=== PATIENT | male | born 1975 | race Caucasian/White ===

== ENCOUNTER 2019-07-13 11:32 | Emergency (ER) | payer OTHER, SELFPAY ==
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
[2019-07-13 11:25] VITALS: BP 128/50; PULSE 120; RESP 20; TEMP 36.3; O2SAT 100
--- NOTE | 2019-07-13 11:34 | DI.CT.S_ITS ---
PROCEDURE: CT HEAD/BRAIN WO CON INDICATIONS: Trauma TECHNIQUE: Noncontrast 4.5 mm thick angled axial sections acquired from the foramen magnum to the vertex, with coronal and sagittal reformats. For radiation dose reduction, the following was used: automated exposure control, adjustment of mA and/or kV according to patient size. COMPARISON: None. FINDINGS: Image quality: Excellent. CSF spaces: Basal cisterns are patent. No extra-axial fluid collections. Ventricles are normal in size and shape. Brain: No midline shift. No intracranial masses or hemorrhage. Edwards-white matter interface is normal. Skull and face: Calvarium and visualized facial bones are intact, without suspicious lesions. Sinuses: Visualized sinuses and mastoids are clear. IMPRESSION: Negative head CT. No acute intracranial hemorrhage. Dictated by: Mook Landon M.D. on 07/13/2019 at 11:10 Approved by: Mook Landon M.D. on 07/13/2019 at 11:11
--- NOTE | 2019-07-13 11:34 | DI.CT.S_ITS ---
PROCEDURE: CT CHEST ABD PEL W CON INDICATIONS: Trauma TECHNIQUE: After the administration of intravenous contrast, 5 mm thick sections acquired from the lung apices to the symphysis. 2.5 mm thick coronal and sagittal reformats were acquired. Additional 7 mm thick coronal maximum intensity projection (MIP) reformats acquired through the lungs. Optional 10-minute delayed imaging may be performed from the kidneys to the bladder. For radiation dose reduction, the following was used: automated exposure control, adjustment of mA and/or kV according to patient size. COMPARISON: None. FINDINGS: Image quality: Diagnostic. CHEST: Lungs: No pulmonary contusions or lacerations. No acute airspace opacities. No pneumothorax or hemothorax. Central and peripheral airways appear patent and normal in caliber. An endotracheal tube is appropriately positioned within the trachea. There is mild bibasilar atelectasis. Minimal debris is seen within the right and left main pulmonary bronchi. Mediastinum: No mediastinal hematomas. Heart size is normal. No pericardial effusion. Thoracic aorta and pulmonary arteries demonstrate normal size and enhancement. No mediastinal or hilar adenopathy. Esophagus is normal in caliber. No hiatal hernia. Chest wall and bones: No displaced rib fractures. The vertebral body heights are well-maintained. No compression deformities are evident. Mild degenerative changes are present. No subcutaneous emphysema. No axillary or supraclavicular adenopathy. Thyroid gland is not adequately evaluated. ABDOMEN: Solid organs: Liver is normal in size and enhancement, without lacerations. Gallbladder is grossly unremarkable. Biliary system is non-dilated. Pancreas enhances normally, without transection. Spleen is normal in size and enhancement, without lacerations. No adrenal hematomas. Both kidneys enhance normally, without hydronephrosis or lacerations. Peritoneum and bowel: No free fluid or air. Unenhanced bowel loops demonstrate normal wall thickness and caliber. Nodes and vessels: No retroperitoneal or mesenteric adenopathy. Aorta and inferior vena cava are normal in size and enhancement. Bones: No acute fractures or suspicious osseous lesions are identified. There are [id number] degenerative changes of the lumbar spine. PELVIS: Genitourinary: There is a Garcia catheter within the urinary bladder. Miscellaneous: No inguinal hernias or adenopathy. Bones: Pelvic ring and hip joints appear intact. No vertebral compression fractures. Acute pelvic fractures are identified. Os acetabuli is present on the left. IMPRESSION: 1. No acute trauma to the chest is evident. 2. No evidence of solid organ injury (laceration or contusion of the abdomen). 3. Minimal bibasilar atelectasis. 4. No displaced fractures of the chest, abdomen, or pelvis. Dictated by: Mook Landon M.D. on 07/13/2019 at 11:14 Approved by: Mook Landon M.D. on 07/13/2019 at 11:18
--- NOTE | 2019-07-13 11:34 | DI.CT.S_ITS ---
PROCEDURE: CT CERVICAL SPINE WO CON INDICATIONS: Trauma TECHNIQUE: Noncontrast 3 mm thick sections acquired from the skull base to the T4 level. Sagittal and coronal reformats were then constructed. For radiation dose reduction, the following was used: automated exposure control, adjustment of mA and/or kV according to patient size. COMPARISON: None. FINDINGS: Image quality: Diagnostic. Bones: The craniocervical and atlantoaxial joints are well-maintained. The odontoid is intact. The vertebral body heights and prevertebral soft tissues are within normal limits throughout the cervical spine without evidence to suggest acute compression fracture. No other fractures are evident within the cervical spine. The bone mineralization is within normal limits. Mild to moderate degenerative changes of the cervical spine are evident. Soft tissues: No prevertebral soft tissue swelling. The imaged lung apices are clear. Imaged portions of the mediastinum are unremarkable. An endotracheal tube is identified within the trachea. Minimal amount of air seen within it the venous structures overlying the supraclavicular regions, which probably is related to IV catheterization. Otherwise, the remainder of the imaged soft tissues of the neck are within normal limits. IMPRESSION: No acute fractures of the cervical spine. Dictated by: Mook Landon M.D. on 07/13/2019 at 11:11 Approved by: Mook Landon M.D. on 07/13/2019 at 11:13
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
[2019-07-13 12:06] VITALS: BP 137/77; PULSE 87; RESP 22; O2SAT 100; O2SAT 99
[2019-07-13 12:33] LABS: Add Manual Diff / Slide Review NO; Basophils Absolute Auto 0 /uL (0-100); Eosinophils Absolute Auto 0 /uL (0-450); Hematocrit 40.7 % (41-53); Hemoglobin 13.9 g/dL (13.5-17.5); Lymphocytes Absolute Auto 500 /uL (1100-4500); Lymphocytes Percent Auto 2.7 % (25-40); Mean Corpuscular HGB Conc 34.2 % (30-36); Mean Corpuscular Hemoglobin 32.4 PG (26-34); Mean Corpuscular Volume 94.7 fL (80-100); Monocytes Absolute Auto 1600 /uL (0-900); Monocytes Percent Auto 7.9 % (3-14); Neutrophils Absolute Auto 17700 /uL (1500-7000); Neutrophils Percent Auto 89.4 % (50-75); Platelet Count 246 X10^3/uL (150-400); White Blood Cell Count 19.9 X10^3/uL (4.5-11.0)
[2019-07-13 12:34] LABS: UR Morphine/Opiate cutoff 300 Negative (Negative); Ur Creatinine Normal (Normal); Ur Specific Gravity Normal (Normal); Urine Amphetamines Negative (Negative); Urine Barbiturates Negative (Negative); Urine Benzodiazepines Negative (Negative); Urine Cocaine Negative (Negative); Urine MDMA Negative (Negative); Urine Methadone Negative (Negative); Urine Methamphetamines Negative (Negative); Urine Oxycodone Negative (Negative); Urine Phencyclidine Negative (Negative); Urine Tetrahydrocannabinol Positive (Negative); Urine Tricyclic Antidepressant Negative (Negative); Urine pH Normal (Normal)
[2019-07-13 12:45] VITALS: BP 140/82; PULSE 59; RESP 16; O2SAT 100
[2019-07-13 12:47] LABS: Alanine Aminotransferase 35 IU/L (<50); Albumin 4.5 g/dL (3.5-5.0); Albumin Globulin Ratio 1.6 (1.0-2.8); Alkaline Phosphatase 89 U/L (38-126); Aspartate Aminotransferase 82 IU/L (17-59); BUN Creatinine Ratio 17.8 (6-22); Bilirubin Total 0.4 mg/dL (0.2-1.3); Blood Urea Nitrogen 16 mg/dL (9-20); Calcium 8.5 mg/dL (8.4-10.2); Carbon Dioxide 24 mmol/L (22-32); Chloride 100 mmol/L (98-107); Creatine Kinase 682 U/L (55-170); Estimated Glomerular Filt Rate > 60.0 mL/min (>60); Ethanol (ETOH) < 10 mg/dL; Globulin 2.9 g/dL (1.7-4.1); Glucose 181 mg/dL (70-100); HEMOLYSIS 20 (0-50); Lipase 87 U/L (23-300); Potassium 3.4 mmol/L (3.4-5.1); Sodium 137 mmol/L (137-145); Total Protein 7.4 g/dL (6.3-8.2)
[2019-07-13 13:01] LABS: CKMB % Relative Index 0.9 % (1.5-5.0); Creatine Kinase MB 6.33 ng/mL (<2.37)
[2019-07-13 13:18] LABS: pH ABG 7.38 (7.35-7.45)
[2019-07-13 13:19] LABS: Fractionated Inspired Oxygen 100; HCO3 ABG 28 mmol/L (22-26); Oxygen Saturation ABG 100 % (95-100); PCO2 ABG 46.8 mmHg (35-45); PO2 ABG 487 mmHg (80-100); TCO2 ABG 29 mmol/L (21-31)
[2019-07-13 13:45] LABS: Troponin I 0.136 ng/mL (0.01-0.034)
[2019-07-13 14:31] LABS: Reflexed Lactate in 2 Hours Y
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
== END 2019-07-13 12:45 | disposition short-term general hospital (02) ==
PROVIDERS: Emergency Provider Emergency Medicine
DX: R56.9 Unspecified convulsions (principal); S09.90XA Unspecified injury of head, initial encounter; S29.9XXA Unspecified injury of thorax, initial encounter; S19.9XXA Unspecified injury of neck, initial encounter; V49.40XA Driver injured in collision with unspecified motor vehicles in traffic accident, initial encounter
CPT/HCPCS: 36600; 70450; 71045; 71260; 72125; 72170; 74177; 80053; 80305; 80320; 82550; 82553; 82805; 82962; 83605; 83690; 84484; 85025; 86850; 86900; 86901; 94002; 94770; 94799; 99283; 99285; 99291; 99292; Q9967

== ENCOUNTER 2019-07-19 16:33 | Emergency (ER) | payer OTHER, SELFPAY ==
[2019-07-13 12:06] VITALS: PULSE 87; RESP 22; O2SAT 100
[2019-07-19 16:41] VITALS: BP 134/76; PULSE 72; RESP 16; TEMP 36.4; O2SAT 97; BMI 22.0
--- NOTE | 2019-07-19 17:26 | DI.CT.S_ITS ---
PROCEDURE: CT HEAD/BRAIN WO CON INDICATIONS: recent trauma, new headache TECHNIQUE: Noncontrast 4.5 mm thick angled axial sections acquired from the foramen magnum to the vertex, with coronal and sagittal reformats. For radiation dose reduction, the following was used: automated exposure control, adjustment of mA and/or kV according to patient size. COMPARISON: [facility], CT, CT HEAD/BRAIN WO CON, 07/13/2019, 11:38. FINDINGS: Image quality: Excellent. CSF spaces: Basal cisterns are patent. No extra-axial fluid collections. Ventricles are normal in size and shape. Brain: No intracranial hemorrhage, mass, or mass effect. Edwards-white matter interface is preserved. Skull and face: Calvarium and visualized facial bones are intact, without suspicious lesions. Sinuses: Visualized sinuses and mastoids are clear. IMPRESSION: 1. No acute intracranial abnormality. Dictated by: Paras Echols M.D. on 07/19/2019 at 16:48 Approved by: Paras Echols M.D. on 07/19/2019 at 16:49
[2019-07-19 17:50] VITALS: BP 143/84; PULSE 77; RESP 18; O2SAT 99
[2019-07-19 17:54] LABS: INR 1.1 (0.9-1.3); Prothrombin Time 12.8 SECONDS (10.1-12.7)
[2019-07-19 17:57] LABS: PTT Partial Thromboplastin Tim 27 SECONDS (26.4-36.2)
[2019-07-19 18:01] LABS: Add Manual Diff / Slide Review NO; Alanine Aminotransferase 25 IU/L (<50); Albumin 4.6 g/dL (3.5-5.0); Albumin Globulin Ratio 1.4 (1.0-2.8); Alkaline Phosphatase 70 U/L (38-126); Aspartate Aminotransferase 31 IU/L (17-59); BUN Creatinine Ratio 28.3 (6-22); Basophils Absolute Auto 0 /uL (0-100); Basophils Percent Auto 0.7 % (0-2); Bilirubin Total 0.3 mg/dL (0.2-1.3); Blood Urea Nitrogen 17 mg/dL (9-20); Calcium 9.9 mg/dL (8.4-10.2); Carbon Dioxide 25 mmol/L (22-32); Chloride 102 mmol/L (98-107); Eosinophils Absolute Auto 100 /uL (0-450); Eosinophils Percent Auto 0.9 % (2-4); Estimated Glomerular Filt Rate > 60.0 mL/min (>60); Globulin 3.2 g/dL (1.7-4.1); Glucose 133 mg/dL (70-100); HEMOLYSIS 17 (0-50); Hematocrit 40.4 % (41-53); Hemoglobin 14.1 g/dL (13.5-17.5); Lymphocytes Absolute Auto 1300 /uL (1100-4500); Lymphocytes Percent Auto 19.2 % (25-40); Mean Corpuscular HGB Conc 34.9 % (30-36); Mean Corpuscular Hemoglobin 32.6 PG (26-34); Mean Corpuscular Volume 93.4 fL (80-100); Monocytes Absolute Auto 700 /uL (0-900); Monocytes Percent Auto 11.4 % (3-14); Neutrophils Absolute Auto 4500 /uL (1500-7000); Neutrophils Percent Auto 67.8 % (50-75); Phenytoin / Dilantin 9.6 ug/mL (10-20); Platelet Count 285 X10^3/uL (150-400); Red Blood Cell Count 4.33 X10^6/uL (4.5-5.9); Red Cell Distribution Width 12.7 % (11.6-14.8); Sodium 138 mmol/L (137-145); Total Protein 7.8 g/dL (6.3-8.2); White Blood Cell Count 6.6 X10^3/uL (4.5-11.0)
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
[2019-07-19 18:12] LABS: Ethanol (ETOH) < 10 mg/dL
[2019-07-19 18:29] LABS: Prolactin 14.8 ng/mL (3.7-17.9)
[2019-07-19 18:43] LABS: UR Morphine/Opiate cutoff 300 Negative (Negative); Ur Creatinine Normal (Normal); Ur Specific Gravity Normal (Normal); Urine Amphetamines Negative (Negative); Urine Barbiturates Positive (Negative); Urine Benzodiazepines Negative (Negative); Urine Cocaine Negative (Negative); Urine MDMA Negative (Negative); Urine Methadone Negative (Negative); Urine Methamphetamines Negative (Negative); Urine Oxycodone Negative (Negative); Urine Phencyclidine Negative (Negative); Urine Tetrahydrocannabinol Positive (Negative); Urine Tricyclic Antidepressant Negative (Negative); Urine pH Normal (Normal)
[2019-07-19 19:32] VITALS: BP 132/70; PULSE 70; RESP 16; O2SAT 99
[2019-07-19 20:30] VITALS: BP 122/70; PULSE 78; RESP 18; O2SAT 99
[2019-07-19] MEDS: PHENYTOIN ER 100 MG CAPSULE 300 MG PO (20:41)
[2019-07-19] MEDS: PHENYTOIN ER 100 MG CAPSULE 200 MG PO (20:41)
[2019-07-19 20:48] LABS: Phenytoin / Dilantin 8.5 ug/mL (10-20)
== END 2019-07-19 20:45 | disposition home or self-care (01) ==
PROVIDERS: Emergency Medicine; Emergency Provider Emergency Medicine
DX: G40.909 Epilepsy, unspecified, not intractable, without status epilepticus (principal); R51 Headache
CPT/HCPCS: 36415; 70450; 80053; 80185; 80305; 80320; 84146; 85025; 85610; 85730; 99284

== ENCOUNTER 2019-09-12 17:07 | Emergency (ER) | payer OTHER, MEDICAID, SELFPAY ==
[2019-07-13 12:06] VITALS: PULSE 87; RESP 22; O2SAT 100
[2019-09-12 17:35] VITALS: BP 139/85; PULSE 86; RESP 16; TEMP 36.6; O2SAT 99; BMI 24.9
[2019-09-12 19:51] VITALS: BP 146/86; PULSE 91; TEMP 36.6; O2SAT 100
--- NOTE | 2019-09-12 20:01 | ED_ITS ---
HPI - Recheck/Abnormal Lab/Rx <JENNIFER Maxwell - Last Filed: 09/12/19 21:39> General Chief Complaint: Recheck/Abnormal Lab/Rx Stated Complaint: Rx refill Time Seen by Provider: 09/12/19 17:48 Source: patient Mode of arrival: Ambulatory Limitations: no limitations History of Present Illness HPI narrative: 44-year-old male presents to the emergency department for a refill on his seizure medication. He was seen on 07/19/2019 in this emergency department for a seizure disorder, at that time patient's phenytoin was increased to 400 mg and he was referred to Neurology. Patient states he has had difficulty establishing a follow-up, he originally tried to have the referral placed for Juan, however this did not happen quickly. He plans to see the provider he was originally referred to at in the next few weeks but states he has ran out of seizure medication. Patient denies any additional seizures since medication increase. He denies any other symptoms such as headaches, chest pain, fevers, shortness of breath, cough, dizziness, nausea, vomiting, diarrhea, or any other concerns. Related Data Previous Rx's Medication Instructions Recorded phenytoin sodium extended 400 mg PO DAILY #30 cap 07/19/19 phenytoin sodium extended 400 mg PO DAILY #60 cap 09/12/19 Allergies Allergy/AdvReac Type Severity Reaction Status Date / Time No Known Drug Allergies Allergy Verified 09/12/19 17:44 Review of Systems <EJNNIFER Maxwell - Last Filed: 09/12/19 21:39> Review of Systems Narrative: REVIEW OF SYSTEMS: GENERAL: Denies fever or chills. HENT: No further head trauma. EYES: No vision changes. CARDIOVASCULAR: No chest pain or syncope. RESPIRATORY: No cough. GASTROINTESTINAL: No nausea, vomiting, diarrhea, or constipation. GENITOURINARY: No flank pain or dysuria. MUSCULOSKELETAL: No pain, weakness, or deformities. INTEGUMENTARY: No rash, lesions, or pruritus. NEURO: No seizures, numbness, tingling, or confusion. PSYCH: No behavior or mood changes. Patient History <JENNIFER Maxwell - Last Filed: 09/12/19 21:39> Medical History Seizure (Acute) Social History Smoking Status: Former smoker Smoking Status: Former smoker alcohol intake frequency: holidays/special occasions only Substance Use Type: marijuana Exam <JENNIFER Maxwell - Last Filed: 09/12/19 21:39> Initial Vital Signs Initial Vital Signs: Vital Signs Temperature 98 F 09/12/19 17:35 Pulse Rate 86 09/12/19 17:35 Respiratory Rate 16 09/12/19 17:35 Blood Pressure 139/85 09/12/19 17:35 Pulse Oximetry 99 09/12/19 17:35 PHYSICAL EXAMINATION: GENERAL: Well groomed, alert, and cooperative. Answers questions promptly and appropriately. Vital signs noted. HENT: Normocephalic, atraumatic. EYES: Conjunctiva pink, sclera white, no periorbital swelling. RESPIRATORY: Normal respiratory rate, trachea midline, airway patent. No stridor, nasal flaring or accessory muscle use. MUSCULOSKELETAL: Normal gait and coordination. Equal tone and mass bilaterally. EXTREMITIES: CMS intact. Moves all extremities. SKIN: Warm, dry, soft, appropriate color for ethnicity. No lesions, rashes, or wounds. NEURO: Alert and Oriented X 3. Good coordination. No ataxia, or sensory deficits, or cognitive issues. PSYCH: Appropriate affect and mood. <Niko Stewart DO - Last Filed: 09/12/19 21:47> Initial Vital Signs Initial Vital Signs: Vital Signs Temperature 98 F 09/12/19 17:35 Pulse Rate 86 09/12/19 17:35 Respiratory Rate 16 09/12/19 17:35 Blood Pressure 139/85 09/12/19 17:35 Pulse Oximetry 99 09/12/19 17:35 Course <JENNIFER Maxwell - Last Filed: 09/12/19 21:39> Vital Signs Vital signs: Vital Signs - 8 hr 09/12/19 17:35 09/12/19 19:51 Temperature 98 F 97.9 F Pulse Rate 86 91 H Respiratory Rate 16 Blood Pressure 139/85 Blood Pressure [Left Arm] 146/86 H Pulse Oximetry 99 100 <Niko Stewart DO - Last Filed: 09/12/19 21:47> Vital Signs Vital signs: Vital Signs - 8 hr 09/12/19 17:35 09/12/19 19:51 Temperature 98 F 97.9 F Pulse Rate 86 91 H Respiratory Rate 16 Blood Pressure 139/85 Blood Pressure [Left Arm] 146/86 H Pulse Oximetry [address] [facility] - Recheck/Abnormal Lab/Rx <Brie ToroJENNIFER - Last Filed: 09/12/19 21:39> Medical Records Attestation: I reviewed the patient's medical records. Lab Data Attestation: I reviewed the patient's lab results. [facility] Narrative Medical decision making narrative: 54-year-old male with a history of seizures presenting to the emergency department for refill on his medication. He denies any symptoms or additional seizures. He was unable to get into her neurologist as he tried to change referral but was unable to do so due to changes with [facility]. He denies any trauma, fevers, or any other concerning symptoms. Patient's medication was refilled as listed and previous records. Records match but patient states that he takes. Patient was encouraged to follow up with his neurologist as discussed. ED precautions given for new or worsening symptoms. Patient agrees to plan of care verbalized understanding. Discharge Plan Departure Patient Disposition: Home Clinical Impression: Encounter for medication refill Discharge Date/Time: 09/12/19 20:11 Activity Restrictions/Additional Instructions: Thank you for entrusting me with your care today. As discussed, I have refilled your seizure medication. Please follow up with your neurologist as planned. Return emergency department for any new or worsening symptoms such as increased seizures, passing out, vomiting, speech changes, severe headaches, or any other concerns. Prescriptions: New phenytoin sodium extended 200 mg capsule 400 mg PO DAILY Qty: 60 RF: 0 No Action phenytoin sodium extended 200 mg capsule 400 mg PO DAILY Qty: 30 RF: 0 <Niko Stewart DO - Last Filed: 09/12/19 21:47> Cosign ED Attending Cosignature Attestation: Dr Stewart Co-Sign Statement: I was available for consultation during this patient's emergency department visit. This chart is signed by myself for administrative purposes only. I did not have direct contact with this patient during this visit. They were seen independently by the APC.
== END 2019-09-12 20:11 | disposition home or self-care (01) ==
PROVIDERS: Emergency Provider Nurse Practitioner
DX: Z76.0 Encounter for issue of repeat prescription (principal)
CPT/HCPCS: 99281

== ENCOUNTER 2022-02-18 09:40 | Emergency (ER) | payer OTHER, MEDICAID, SELFPAY ==
[2019-07-13 12:06] VITALS: PULSE 87; RESP 22; O2SAT 100
[2022-02-18] VITALS (8 sets, daily range): BP systolic 112–138; BP diastolic 61–81; PULSE 52–79; RESP 18–35; TEMP 36.7; O2SAT 94–99; BMI 23.6
[2022-02-18 10:39] LABS: Add Manual Diff / Slide Review NO; Basophils Absolute Auto 0 /uL (0-100); Basophils Percent Auto 0.8 % (0-2); Eosinophils Absolute Auto 100 /uL (0-450); Eosinophils Percent Auto 1.4 % (2-4); Hematocrit 40.3 % (41-53); Hemoglobin 13.7 g/dL (13.5-17.5); Lymphocytes Absolute Auto 800 /uL (1100-4500); Lymphocytes Percent Auto 17.9 % (25-40); Mean Corpuscular HGB Conc 34.1 % (30-36); Mean Corpuscular Hemoglobin 32.7 PG (26-34); Monocytes Absolute Auto 400 /uL (0-900); Monocytes Percent Auto 8.2 % (3-14); Neutrophils Absolute Auto 3200 /uL (1500-7000); Neutrophils Percent Auto 71.7 % (50-75); Platelet Count 262 X10^3/uL (150-400); Red Cell Distribution Width 12.8 % (11.6-14.8); White Blood Cell Count 4.5 X10^3/uL (4.5-11.0)
[2022-02-18 10:45] LABS: Appearance Urine UA CLEAR; Bilirubin Urine UA NEGATIVE (NEGATIVE); Color Urine UA YELLOW; Glucose Urine UA NEGATIVE (Negative); Ketones Urine UA NEGATIVE (NEGATIVE); Leukocyte Esterase Urine UA NEGATIVE (NEGATIVE); Nitrite Urine UA NEGATIVE (Negative); Occult Blood Urine UA NEGATIVE (Negative); Protein Urine UA NEGATIVE (Negative); Specific Gravity Urine UA <=1.005 (1.000-1.035); Urobilinogen Urine UA 0.2 E.U./dL (0.2)
[2022-02-18 10:52] LABS: Alanine Aminotransferase 48 IU/L (<50); Albumin Globulin Ratio 1.4 (1.0-2.8); Alkaline Phosphatase 67 U/L (38-126); Aspartate Aminotransferase 63 IU/L (17-59); BUN Creatinine Ratio 14.7 (6-22); Bilirubin Total 0.2 mg/dL (0.2-1.3); Blood Urea Nitrogen 10 mg/dL (9-20); Calcium 8.9 mg/dL (8.4-10.2); Carbon Dioxide 27 mmol/L (22-32); Chloride 101 mmol/L (98-107); Estimated Glomerular Filt Rate > 60 mL/min (>60); Globulin 2.9 g/dL (1.7-4.1); Glucose 112 mg/dL (70-100); HEMOLYSIS < 15 (0-50); Potassium 4.1 mmol/L (3.4-5.1); Sodium 134 mmol/L (137-145); Total Protein 6.9 g/dL (6.3-8.2)
[2022-02-18 11:10] LABS: RBC Urine 0-1/HPF (0-5/HPF); WBC Urine 0-1/HPF (0-5/HPF)
[2022-02-18 11:11] LABS: Bacteria Urine Occasional (0-1); Culture Indicated Urine Cult Not Indicated
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
[2022-02-18] MEDS: FOSPHENYTOIN IV (12:50)
[2022-02-18] MEDS: SODIUM CHLORIDE 0.9% IV (12:50)
== END 2022-02-18 14:10 | disposition home or self-care (01) ==
PROVIDERS: Emergency Provider Emergency Medicine
DX: R56.9 Unspecified convulsions (principal)
CPT/HCPCS: 36415; 80053; 80185; 81001; 85025; 93005; 96365; 99284; Q2009